=== PATIENT | female | born 1990 | race Caucasian/White ===

== ENCOUNTER 2017-02-05 19:13 | Emergency (ER) | payer SELFPAY ==
[2017-02-05] MEDS ORDERED: ACETAMINOPHEN W/COD #3 TAB 1 EA TAB PO ONE (19:32)
[2017-02-05] MEDS ORDERED: AMOXICILLIN & POT CLAVULANATE 875 MG TAB PO ONE (19:32)
[2017-02-05 19:34] VITALS: BP 121/82; TEMP 98; O2SAT 96
--- NOTE | 2017-02-05 19:35 | ED.PDOC ---
History of Present Illness - General Chief Complaint: Skin/Abrasion/Tear Stated Complaint: right cheek boil Time Seen by Provider: 02/05/17 19:16 Source: patient, RN notes reviewed, Vital Signs reviewed Exam Limitations: no limitations - History of Present Illness Initial Comments: Patient with tender/painful swollen area on right cheek. Reports it has been there for months. She tried lancing it herself. Pain now is extending into her ear and jaw. Mostly just wants the pain to go away. Timing/Duration: getting worse - over past several months. Location: face - Right posterior cheek, just proximal to ear Improving Factors: nothing Worsening Factors: movement, other - touching Associated Symptoms: swelling/mass/lumps Allergies/Adverse Reactions: Allergies NO KNOWN ALLERGY Allergy (Verified 08/09/16 22:38) Home Medications: Ambulatory Orders Albuterol Inhaler [Ventolin Hfa Inhaler] 2 puff INH Q3H PRN #1 inh 10/05/16 Acetaminophen W/ Codeine [Tylenol W/ CODEINE #3] 1 ea PO Q4HR PRN #15 02/05/17 Amoxicillin & Pot Clavulanate [Augmentin] 1 tab PO BID #20 tab 02/05/17 Review of Systems - Review of Systems Constitutional: States: no symptoms reported. Denies: chills, fever, malaise EENTM: States: other - Right jaw pain Respiratory: States: no symptoms reported Cardiology: States: no symptoms reported Gastrointestinal/Abdominal: States: no symptoms reported Musculoskeletal: States: no symptoms reported Skin: States: lesions - swollen, tender lump on R cheek with surrounding tenderness. Endocrine: States: no symptoms reported Hematologic/Lymphatic: States: no symptoms reported Past Medical History (General) - Patient Medical History Hx Seizures: No Hx Stroke: No Hx Dementia: No Hx Asthma: Yes Hx of COPD: No Hx Cardiac Disorders: No Hx Congestive Heart Failure: No Hx Pacemaker: No Hx Hypertension: No Hx Thyroid Disease: No Hx Diabetes: No Hx Gastroesophageal Reflux: Yes Hx Renal Disease: No Hx Cancer: No Hx of HIV: No Hx Hepatitis C: No Hx MRSA: No - Vaccination History Hx Tetanus, Diphtheria Vaccination: Yes Hx Influenza Vaccination: No Hx Pneumococcal Vaccination: No - Social History Hx Tobacco Use: Yes Hx Chewing Tobacco Use: No Hx Alcohol Use: No Hx Substance Use: Yes Hx Substance Use Treatment: Yes Hx Depression: No Hx Physical Abuse: No Hx Emotional Abuse: No Hx Suspected Abuse: No - Female History Patient : No Family Medical History - Family History Mother Family History: Unknown Living Status: Unknown Physical Exam - Physical Exam General Appearance: Alert, Comfortable, No apparent distress, Well Developed, Well Groomed, Well Hydrated, Well Nourished Eyes, Ears, Nose, Throat Exam: PERRL/EOMI, normal ENT inspection, TMs normal, pharynx normal Neck: non-tender, full range of motion, supple, lymphadenopathy (R) Respiratory: no respiratory distress, no accessory muscle use Extremity: normal range of motion, non-tender, normal inspection Neurologic: no motor/sensory deficits, alert, normal mood/affect, oriented x 3 Skin Exam: other - Right cheek, just ant to ear - tender lump with mild fluctuance, erythema and warmth. No surrounding erythema or warmth, no induration. +surrounding tenderness Skin Problem Location: face Skin Character: abscess, erythema, warm Departure - Departure Clinical Impression: Abscess of cheek Time of Disposition: 19:39 Disposition: Discharge to Home or Self Care Condition: Good Departure Forms: ED Discharge - Pt. Copy, Patient Portal Self Enrollment Instructions: DI for Skin Abscess Diet: resume usual diet Activity: increase activity as tolerated Prescriptions: Acetaminophen W/ Codeine [Tylenol W/ CODEINE #3] 1 ea PO Q4HR PRN #15 PRN Reason: Moderate To Severe Pain Amoxicillin & Pot Clavulanate [Augmentin] 1 tab PO BID #20 tab Home Medications: Ambulatory Orders Albuterol Inhaler [Ventolin Hfa Inhaler] 2 puff INH Q3H PRN #1 inh 10/05/16 Acetaminophen W/ Codeine [Tylenol W/ CODEINE #3] 1 ea PO Q4HR PRN #15 02/05/17 Amoxicillin & Pot Clavulanate [Augmentin] 1 tab PO BID #20 tab 02/05/17 Additional Instructions: Hot compresses 3-5X/day
== END 2017-02-05 19:52 | disposition home or self-care (01) ==
LOC: ER 19:13
DX: L02.01 Cutaneous abscess of face (principal); J45.909 Unspecified asthma, uncomplicated; K21.9 Gastro-esophageal reflux disease without esophagitis; Z87.891 Personal history of nicotine dependence

== ENCOUNTER 2017-04-22 17:12 | Emergency (ER) | payer SELFPAY ==
[2017-04-22 17:28] VITALS: BP 127/85; TEMP 97.6; O2SAT 96
--- NOTE | 2017-04-22 17:44 | ED.PDOC ---
History of Present Illness - General Chief Complaint: Dental/Mouth Stated Complaint: tooth ache Time Seen by Provider: 04/22/17 17:42 Source: patient Exam Limitations: no limitations - History of Present Illness Initial Comments: the patient is a 26-year-old female presenting to the emergency room due to dental pain on her second molar right maxilla. Pain has been present for a couple of weeks. She has tried oral [id number] medicati both ingested and topical. She cannot afford the dentist. She is feeling sinus pressure in the right maxillary sinus. She believes she has been running fevers She now has something of a sore throat. Timing/Duration: 1 week Severity: moderate Improving Factors: nothing Worsening Factors: nothing Associated Symptoms: denies symptoms Allergies/Adverse Reactions: Allergies NO KNOWN ALLERGY Allergy (Verified 08/09/16 22:38) Home Medications: Ambulatory Orders Cephalexin Monohydrate [Keflex] 500 mg PO Q8H #30 cap 04/22/17 Gabapentin 300 mg PO TID PRN #20 cap 04/22/17 Review of Systems - Review of Systems Constitutional: States: malaise EENTM: States: mouth pain Respiratory: States: no symptoms reported Cardiology: States: no symptoms reported Gastrointestinal/Abdominal: States: no symptoms reported Genitourinary: States: no symptoms reported Musculoskeletal: States: no symptoms reported Skin: States: no symptoms reported Neurological: States: no symptoms reported Endocrine: States: no symptoms reported All other Systems: No Change from Baseline Past Medical History (General) - Patient Medical History Hx Seizures: No Hx Stroke: No Hx Dementia: No Hx Asthma: Yes Hx of COPD: No Hx Cardiac Disorders: No Hx Congestive Heart Failure: No Hx Pacemaker: No Hx Hypertension: No Hx Thyroid Disease: No Hx Diabetes: No Hx Gastroesophageal Reflux: Yes Hx Renal Disease: No Hx Cancer: No Hx of HIV: No Hx Hepatitis C: No Hx MRSA: No Surgical History: cholecystectomy - Vaccination History Hx Tetanus, Diphtheria Vaccination: Yes Hx Influenza Vaccination: No Hx Pneumococcal Vaccination: No - Social History Hx Tobacco Use: Yes Hx Chewing Tobacco Use: No Hx Alcohol Use: No Hx Substance Use: Yes Hx Substance Use Treatment: Yes Hx Depression: No Hx Physical Abuse: No Hx Emotional Abuse: No Hx Suspected Abuse: No - Female History Patient : No Family Medical History - Family History Mother Family History: Unknown Living Status: Unknown Physical Exam - Physical Exam General Appearance: Alert, Comfortable, No apparent distress Eye Exam: bilateral normal Ears, Nose, Throat: other - poor dentition no obvious abscess Neck: non-tender, full range of motion, supple Respiratory: no respiratory distress, no accessory muscle use Cardiovascular/Chest: normal peripheral pulses, no edema Peripheral Pulses: radial,right: 2+, radial,left: 2+ Rectal Exam: deferred Extremity: normal range of motion, normal inspection, no pedal edema, normal capillary refill 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 The patient will be placed on Keflex for 10 days. She will also be written for gabapentin for as needed use. She can continue Motrin. she needs to follow up with a dentist. ER warnings were given. Departure - Departure Clinical Impression: Pain due to dental caries Disposition: Discharge to Home or Self Care Condition: Fair Departure Forms: ED Discharge - Pt. Copy, Patient Portal Self Enrollment Instructions: DI for Dental Pain Diet: regular diet Activity: increase activity as tolerated Prescriptions: Cephalexin Monohydrate [Keflex] 500 mg PO Q8H #30 cap Gabapentin 300 mg PO TID PRN #20 cap PRN Reason: Toothache Pain Home Medications: Ambulatory Orders Cephalexin Monohydrate [Keflex] 500 mg PO Q8H #30 cap 04/22/17 Gabapentin 300 mg PO TID PRN #20 cap 04/22/17 Additional Instructions: the patient is a 26-year-old female presenting with pain from dental caries and resultant maxillary sinusitis on the right. The patient will be placed on Keflex for 10 days. She will also be written for gabapentin for as needed use. She can continue Motrin. she needs to follow up with a dentist. ER warnings were given.
== END 2017-04-22 17:59 | disposition home or self-care (01) ==
LOC: ER 17:12
DX: K02.9 Dental caries, unspecified (principal); K21.9 Gastro-esophageal reflux disease without esophagitis; J45.909 Unspecified asthma, uncomplicated; Z87.891 Personal history of nicotine dependence

== ENCOUNTER 2017-05-17 15:11 | Emergency (ER) | payer SELFPAY ==
--- NOTE | 2017-05-17 15:30 | ED.PDOC ---
History of Present Illness - General Time Seen by Provider: 05/17/17 15:28 Source: patient Exam Limitations: no limitations - History of Present Illness Initial Comments: The patient is a 26-year-old female presenting to the emergency room secondary to 24 hours of intermittent nausea and vomiting. She does report some coffee- ground emesis. She is also been having some mild diarrhea but no melena. No fevers. She has been having some abdominal cramping. The patient has been taking Advil and Aleve very heavily due todental pain. Timing/Duration: 24 hours Severity: moderate Improving Factors: nothing Worsening Factors: nothing Associated Symptoms: denies symptoms Allergies/Adverse Reactions: Allergies NO KNOWN ALLERGY Allergy (Verified 08/09/16 22:38) Home Medications: Ambulatory Orders Cephalexin Monohydrate [Keflex] 500 mg PO Q8H #30 cap 04/22/17 Gabapentin 300 mg PO TID PRN #20 cap 04/22/17 Promethazine HCl 25 mg PO Q6H PRN #10 tab 05/17/17 Sucralfate Tab [Carafate Tab] 1 gm PO QID #120 tab 05/17/17 Review of Systems - Review of Systems Constitutional: States: no symptoms reported EENTM: States: mouth pain - dental pain Respiratory: States: no symptoms reported Cardiology: States: no symptoms reported Gastrointestinal/Abdominal: States: see HPI Genitourinary: States: no symptoms reported Musculoskeletal: States: no symptoms reported Skin: States: no symptoms reported Neurological: States: no symptoms reported Endocrine: States: no symptoms reported All other Systems: No Change from Baseline Past Medical History (General) - Patient Medical History Hx Seizures: No Hx Stroke: No Hx Dementia: No Hx Asthma: Yes Hx of COPD: No Hx Cardiac Disorders: No Hx Congestive Heart Failure: No Hx Pacemaker: No Hx Hypertension: No Hx Thyroid Disease: No Hx Diabetes: No Hx Gastroesophageal Reflux: Yes Hx Renal Disease: No Hx Cancer: No Hx of HIV: No Hx Hepatitis C: No Hx MRSA: No - Vaccination History Hx Tetanus, Diphtheria Vaccination: Yes Hx Influenza Vaccination: No Hx Pneumococcal Vaccination: No - Social History Hx Tobacco Use: Yes Hx Chewing Tobacco Use: No Hx Alcohol Use: No Hx Substance Use: Yes Hx Substance Use Treatment: Yes Hx Depression: No Hx Physical Abuse: No Hx Emotional Abuse: No Hx Suspected Abuse: No - Female History Patient : No Family Medical History - Family History Mother Family History: Unknown Living Status: Unknown Physical Exam - Physical Exam General Appearance: Alert, Comfortable, No apparent distress Eye Exam: bilateral normal Ears, Nose, Throat: hearing grossly normal, normal pharynx - except poor dentition and pain from a broken posterior right upper molar Neck: non-tender, full range of motion, supple Respiratory: chest non-tender, lungs clear, normal breath sounds, no respiratory distress, no accessory muscle use Cardiovascular/Chest: normal peripheral pulses, regular rate, rhythm, no edema Peripheral Pulses: radial,right: 2+, radial,left: 2+ Gastrointestinal/Abdominal: non tender, soft Rectal Exam: deferred Back Exam: normal inspection, no CVA tenderness, no vertebral tenderness Extremity: normal range of motion, non-tender, normal inspection, no pedal edema , normal capillary refill 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 the patient likely has a significant gastritis related to her anti-inflammatory use for control of her dental pain. She is going to have to stop using the Advil and Aleve. She needs to go back to using Tylenol but no more than 3000 mg per day. She does need to see a dentist to get the tooth fixed. She can try applying clove oil topically to the tooth once to see if this helps. She can continue using Ambisol on the tooth. She also needs to excelsior picker some Maalox and take a tablespoon every couple of hours for the next 2 days for her gastritis. She is going to be written for Carafate 4 times daily for the next month. She is also going to be written for some oral Phenergan to help control any nausea. ER warnings were given for any worsening. The patient agrees to comply. Departure - Departure Clinical Impression: NSAID induced gastritis Disposition: Discharge to Home or Self Care Condition: Fair Instructions: DI for Gastritis Diet: bland diet Activity: increase activity as tolerated Prescriptions: Promethazine HCl 25 mg PO Q6H PRN #10 tab PRN Reason: Vomiting Sucralfate Tab [Carafate Tab] 1 gm PO QID #120 tab Home Medications: Ambulatory Orders Cephalexin Monohydrate [Keflex] 500 mg PO Q8H #30 cap 04/22/17 Gabapentin 300 mg PO TID PRN #20 cap 04/22/17 Promethazine HCl 25 mg PO Q6H PRN #10 tab 05/17/17 Sucralfate Tab [Carafate Tab] 1 gm PO QID #120 tab 05/17/17 Additional Instructions: the patient is a 26-year-old female presenting to the emergency room secondary to nausea and vomiting. the patient likely has a significant gastritis related to her anti-inflammatory use for control of her dental pain. She is going to have to stop using the Advil and Aleve. She needs to go back to using Tylenol but no more than 3000 mg per day. She does need to see a dentist to get the tooth fixed. She can try applying clove oil topically to the tooth once to see if this helps. She can continue using Ambisol on the tooth. She also needs to excelsior picker some Maalox and take a tablespoon every couple of hours for the next 2 days for her gastritis. She is going to be written for Carafate 4 times daily for the next month. She is also going to be written for some oral Phenergan to help control any nausea. ER warnings were given for any worsening. The patient agrees to comply.
[2017-05-17] MEDS ORDERED: ONDANSETRON ODT 8 MG TAB SL ONE (15:44)
[2017-05-17] MEDS ORDERED: ALUMINUM & MAGNESIUM HYDROXIDE 30 ML UD PO ONE (15:44)
[2017-05-17] MEDS ORDERED: ACETAMINOPHEN 325 MG TAB PO ONE (16:15)
[2017-05-17 19:16] VITALS: TEMP 98.4; O2SAT 96
[2017-05-17 19:19] VITALS: BP 154/97
== END 2017-05-17 16:35 | disposition home or self-care (01) ==
LOC: ER 15:11
DX: K29.70 Gastritis, unspecified, without bleeding (principal); T39.395A Adverse effect of other nonsteroidal anti-inflammatory drugs [NSAID], initial encounter; K21.9 Gastro-esophageal reflux disease without esophagitis; J45.909 Unspecified asthma, uncomplicated; Z87.891 Personal history of nicotine dependence; K08.89 Other specified disorders of teeth and supporting structures

== ENCOUNTER 2018-02-16 22:30 | Emergency (ER) | payer SELFPAY ==
[2018-02-16] MEDS ORDERED: ACETAMINOPHEN-CAFF-BUTALBITAL 1 EA TAB PO ONE (22:55)
[2018-02-16] MEDS ORDERED: GABAPENTIN 300 MG CAP PO ONE (22:56)
--- NOTE | 2018-02-16 22:59 | ED.PDOC ---
History of Present Illness - General Chief Complaint: Dental/Mouth Stated Complaint: Toothache Time Seen by Provider: 02/16/18 22:50 Source: patient Exam Limitations: no limitations - History of Present Illness Initial Comments: The patient is a 27-year-old female presenting to the emergency room secondary to dental pain. The patient fractured her top left most posterior molar 3 or 4 days ago and has been having uncontrolled pain since. She has been taking Motrin and Tylenol and eventook one dose of hydrocodone which did not really help. It does not appear to be infected simply fractured. She has been using [id number] topical numbing agents with some relief. Severity: severe Improving Factors: nothing Worsening Factors: nothing Associated Symptoms: denies symptoms Allergies/Adverse Reactions: Allergies NO KNOWN ALLERGY Allergy (Verified 08/09/16 22:38) Home Medications: Ambulatory Orders Cephalexin Monohydrate [Keflex] 500 mg PO Q8H #30 cap 04/22/17 Gabapentin 300 mg PO TID PRN #20 cap 04/22/17 Promethazine HCl 25 mg PO Q6H PRN #10 tab 05/17/17 Sucralfate Tab [Carafate Tab] 1 gm PO QID #120 tab 05/17/17 Wlonrgzvfhoey-Nbmy-Dutykkjqyw [Fioricet] 1 ea PO Q8H PRN #21 tab 02/16/18 Cephalexin Monohydrate [Keflex] 500 mg PO Q8H #30 cap 02/16/18 Gabapentin 300 mg PO Q8HR PRN #20 cap 02/16/18 Review of Systems - Review of Systems Constitutional: States: no symptoms reported EENTM: States: mouth pain Respiratory: States: no symptoms reported Cardiology: States: no symptoms reported Gastrointestinal/Abdominal: States: no symptoms reported Genitourinary: States: no symptoms reported Musculoskeletal: States: no symptoms reported Skin: States: no symptoms reported Neurological: States: no symptoms reported Endocrine: States: no symptoms reported All other Systems: No Change from Baseline Past Medical History (General) - Patient Medical History Hx Seizures: No Hx Stroke: No Hx Dementia: No Hx Asthma: Yes Hx of COPD: No Hx Cardiac Disorders: No Hx Congestive Heart Failure: No Hx Pacemaker: No Hx Hypertension: No Hx Thyroid Disease: No Hx Diabetes: No Hx Gastroesophageal Reflux: Yes Hx Renal Disease: No Hx Cancer: No Hx of HIV: No Hx Hepatitis C: No Hx MRSA: No Surgical History: cholecystectomy - Vaccination History Hx Tetanus, Diphtheria Vaccination: Yes Hx Influenza Vaccination: Yes Hx Pneumococcal Vaccination: No Immunizations Up to Date: Yes - Social History Hx Tobacco Use: Yes Cigarettes Packs Per Day: 1 Hx Chewing Tobacco Use: No Hx Alcohol Use: No Hx Substance Use: No Hx Substance Use Treatment: No Hx Depression: Yes Feels Threatened In Home Enviroment: No Feels Threatened In a Relationship: No Hx Physical Abuse: No Hx Emotional Abuse: No Hx Suspected Abuse: No - Activities of Daily Living Hospice Agency (if applicable):: None - Female History Patient is a Female of Child Bearing Age (10 -59 yrs old): Yes Patient : No Family Medical History - Family History Mother Family History: Unknown Living Status: Unknown Physical Exam - Physical Exam General Appearance: Alert, Comfortable, No apparent distress Eye Exam: bilateral normal Ears, Nose, Throat: hearing grossly normal, other - see history of present illness Neck: full range of motion, supple Respiratory: no respiratory distress, no accessory muscle use Cardiovascular/Chest: normal peripheral pulses, no edema Peripheral Pulses: radial,right: 2+, radial,left: 2+ Rectal Exam: deferred Extremity: normal range of motion, no pedal edema, normal capillary refill 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 There does not appear to be infection at this time. The patient is going to be written for some Fioricet and Neurontin to take for the next few days until she can get set up with a dentist. She'll be written for Keflex to start taking 2 days before a dental appointment. She can continue Orajel for topical pain relief. If she can get a hold of some clove oil she can use some topical clove oil once on the fractured tooth to try and help with pain. She can continue to take Motrin 3 times daily with food as needed. Soft mechanical diet is recommended. ER warnings were given for any significant worsening. Departure - Departure Clinical Impression: Dental injury Qualifiers: Encounter type: initial encounter Qualified Code(s): S09.93XA - Unspecified injury of face, initial encounter Disposition: Discharge to Home or Self Care Condition: Fair Departure Forms: ED Discharge - Pt. Copy, Patient Portal Self Enrollment Instructions: DI for Dental Pain Diet: regular diet Activity: increase activity as tolerated Prescriptions: Gabapentin 300 mg PO Q8HR PRN #20 cap PRN Reason: Toothache Pain Yqkgeadwfggaf-Sfju-Skyaehklfg [Fioricet] 1 ea PO Q8H PRN #21 tab PRN Reason: Pain Cephalexin Monohydrate [Keflex] 500 mg PO Q8H #30 cap Home Medications: Ambulatory Orders Cephalexin Monohydrate [Keflex] 500 mg PO Q8H #30 cap 04/22/17 Gabapentin 300 mg PO TID PRN #20 cap 04/22/17 Promethazine HCl 25 mg PO Q6H PRN #10 tab 05/17/17 Sucralfate Tab [Carafate Tab] 1 gm PO QID #120 tab 05/17/17 Cnmxdzqogbtqh-Hjig-Pmepellxil [Fioricet] 1 ea PO Q8H PRN #21 tab 02/16/18 Cephalexin Monohydrate [Keflex] 500 mg PO Q8H #30 cap 02/16/18 Gabapentin 300 mg PO Q8HR PRN #20 cap 02/16/18 Additional Instructions: the patient's 27-year-old female presenting to the emergency room secondary to dental pain from a fractured molar. There does not appear to be infection at this time. The patient is going to be written for some Fioricet and Neurontin to take for the next few days until she can get set up with a dentist. She'll be written for Keflex to start taking 2 days before a dental appointment. She can continue Orajel for topical pain relief. If she can get a hold of some clove oil she can use some topical clove oil once on the fractured tooth to try and help with pain. She can continue to take Motrin 3 times daily with food as needed. Soft mechanical diet is recommended. ER warnings were given for any significant worsening.
[2018-02-16 23:21] VITALS: BP 148/85; TEMP 98.1; O2SAT 98
== END 2018-02-16 23:21 | disposition home or self-care (01) ==
LOC: ER 22:30
DX: S02.5XXA Fracture of tooth (traumatic), initial encounter for closed fracture (principal); J45.909 Unspecified asthma, uncomplicated; K21.9 Gastro-esophageal reflux disease without esophagitis; F17.210 Nicotine dependence, cigarettes, uncomplicated; X58.XXXA Exposure to other specified factors, initial encounter; Y92.9 Unspecified place or not applicable

== ENCOUNTER 2018-02-19 22:56 | Emergency (ER) | payer SELFPAY ==
[2018-02-19] MEDS ORDERED: IPRATROPIUM/ALBUTEROL 3 ML VIAL NEB ONE (23:32)
[2018-02-19] MEDS ORDERED: methylPREDNISolone SODIUM SUC 125 MG/2 ML VIAL IV ONE (23:32)
[2018-02-19] MEDS ORDERED: SODIUM CHLORIDE 0.9% 1000ML 1,000 ML IVS ONE (23:32)
--- NOTE | 2018-02-19 23:36 | ED.PDOC ---
History of Present Illness - General Chief Complaint: Respiratory Problem Stated Complaint: short of breath, coughing, fever Time Seen by Provider: 02/19/18 23:30 Source: patient Exam Limitations: no limitations Additional Information: C/O COUGH WHEEZING AND SOB X 1.5 WEEKS. WORSENING. HAS NOT RESPONDED TO NEBULIZER TX. - History of Present Illness Severity: moderate Improving Factors: other - NEUBLIZER GIVES VERY SHORT TERM RELIEF. Worsening Factors: movement - FUENTES Associated Symptoms: fever/chills Allergies/Adverse Reactions: Allergies NO KNOWN ALLERGY Allergy (Verified 02/19/18 23:33) Home Medications: Ambulatory Orders Cephalexin Monohydrate [Keflex] 500 mg PO Q8H #30 cap 04/22/17 Gabapentin 300 mg PO TID PRN #20 cap 04/22/17 Promethazine HCl 25 mg PO Q6H PRN #10 tab 05/17/17 Sucralfate Tab [Carafate Tab] 1 gm PO QID #120 tab 05/17/17 Naegcdbopknan-Nihm-Hhoufbqpdj [Fioricet] 1 ea PO Q8H PRN #21 tab 02/16/18 Cephalexin Monohydrate [Keflex] 500 mg PO Q8H #30 cap 02/16/18 Gabapentin 300 mg PO Q8HR PRN #20 cap 02/16/18 Albuterol Sulfate Nebs [Proventil Nebs] 2.5 mg INH QID PRN #120 vial 02/20/18 Amoxicillin & Pot Clavulanate [Augmentin] 1 tab PO BID #20 tab 02/20/18 Prednisone [Deltasone] 20 mg PO BID #5 tab 02/20/18 Review of Systems - Review of Systems Constitutional: States: fever. Denies: chills, diaphoresis EENTM: States: no symptoms reported Respiratory: States: cough, short of breath, wheezing, other - AUDIO VISUAL AIDE Cardiology: Denies: chest pain, palpitations, syncope Gastrointestinal/Abdominal: Denies: abdominal pain, diarrhea, nausea, vomiting Genitourinary: States: no symptoms reported Musculoskeletal: States: no symptoms reported Skin: States: no symptoms reported Neurological: States: no symptoms reported Endocrine: States: no symptoms reported Hematologic/Lymphatic: States: no symptoms reported Past Medical History (General) - Patient Medical History Hx Seizures: No Hx Stroke: No Hx Dementia: No Hx Asthma: Yes Hx of COPD: No Hx Cardiac Disorders: No Hx Congestive Heart Failure: No Hx Pacemaker: No Hx Hypertension: No Hx Thyroid Disease: No Hx Diabetes: No Hx Gastroesophageal Reflux: Yes Hx Renal Disease: No Hx Cancer: No Hx of HIV: No Hx Hepatitis C: No Hx MRSA: No Surgical History: cholecystectomy - Vaccination History Hx Tetanus, Diphtheria Vaccination: Yes Hx Influenza Vaccination: Yes Hx Pneumococcal Vaccination: No - Social History Hx Tobacco Use: Yes Hx Chewing Tobacco Use: No Hx Alcohol Use: No Hx Substance Use: No Hx Substance Use Treatment: No Hx Depression: Yes Hx Physical Abuse: No Hx Emotional Abuse: No Hx Suspected Abuse: No - Female History Hx Last Menstrual Period: 02/08/18 Patient : No Family Medical History - Family History Mother Family History: Unknown Living Status: Unknown Hx Family Asthma: No Hx Family Congestive Heart Failure: No Hx Family Hypertension: No Hx Family Stroke: No Hx Cardiac Disease: No Hx Family Diabetes: No Hx Family Cancer: No Physical Exam - Physical Exam General Appearance: Anxious, No apparent distress, Obese Eye Exam: bilateral normal Ears, Nose, Throat: hearing grossly normal, normal ENT inspection Neck: non-tender, full range of motion, supple Respiratory: no respiratory distress, other - INSP/EXP WHEEZING, NO RALES/ RHONCHI Cardiovascular/Chest: no murmur, tachycardia Gastrointestinal/Abdominal: non tender, soft, no organomegaly Back Exam: normal inspection, no CVA tenderness, no vertebral tenderness Extremity: normal range of motion, non-tender, normal inspection, no pedal edema , no calf tenderness Neurologic: alert, normal mood/affect Skin Exam: normal color, warm/dry Lymphatic: no adenopathy Progress - Progress Progress: 02/20/18 00:31 FEELS BETTER, NO WHEEZES, HAS A FEW LLL RALES. - EKG/XRAY/CT XRAY: chest - EARLY LLL INFILTRATE Departure - Departure Clinical Impression: Asthma exacerbation, Bronchospasm, acute Pneumonia Qualifiers: Pneumonia type: due to unspecified organism Laterality: left Lung location: lower lobe of lung Qualified Code(s): J18.1 - Lobar pneumonia, unspecified organism Time of Disposition: 00:33 Disposition: Discharge to Home or Self Care Condition: Good Departure Forms: ED Discharge - Pt. Copy, Patient Portal Self Enrollment Instructions: DI for Pneumonia -- Adult, DI for Asthma -- Adult Prescriptions: Albuterol Sulfate Nebs [Proventil Nebs] 2.5 mg INH QID PRN #120 vial PRN Reason: WHEEZING Amoxicillin & Pot Clavulanate [Augmentin] 1 tab PO BID #20 tab Prednisone [Deltasone] 20 mg PO BID #5 tab Home Medications: Ambulatory Orders Cephalexin Monohydrate [Keflex] 500 mg PO Q8H #30 cap 04/22/17 Gabapentin 300 mg PO TID PRN #20 cap 04/22/17 Promethazine HCl 25 mg PO Q6H PRN #10 tab 05/17/17 Sucralfate Tab [Carafate Tab] 1 gm PO QID #120 tab 05/17/17 Wavennyonpeeb-Vcae-Oxxabudtuv [Fioricet] 1 ea PO Q8H PRN #21 tab 02/16/18 Cephalexin Monohydrate [Keflex] 500 mg PO Q8H #30 cap 02/16/18 Gabapentin 300 mg PO Q8HR PRN #20 cap 02/16/18 Albuterol Sulfate Nebs [Proventil Nebs] 2.5 mg INH QID PRN #120 vial 02/20/18 Amoxicillin & Pot Clavulanate [Augmentin] 1 tab PO BID #20 tab 02/20/18 Prednisone [Deltasone] 20 mg PO BID #5 tab 02/20/18
--- NOTE | 2018-02-19 23:55 | RAD ---
EXAM: AP CHEST RADIOGRAPH CLINICAL INDICATION: Cough and wheezing. COMPARISON: Chest radiographs of October 05, 2016. FINDINGS: Cardiac size and pulmonary vasculature are normal. Lungs are clear. No pleural effusions or pneumothorax. No hilar or mediastinal lymphadenopathy. No mediastinal widening. No extraluminal bowel gas under the hemidiaphragms. Bones are intact on this single view. IMPRESSION: Normal portable AP chest radiograph. Electronically signed by: Estuardo Kirby MD 02/19/2018 11:54 PM CDT
[2018-02-19 23:57] VITALS: O2SAT 95
[2018-02-20 01:39] VITALS: BP 164/88; TEMP 98.6
== END 2018-02-20 01:44 | disposition home or self-care (01) ==
LOC: ER 22:56
DX: J18.1 Lobar pneumonia, unspecified organism (principal); J45.901 Unspecified asthma with (acute) exacerbation; Z87.891 Personal history of nicotine dependence

== ENCOUNTER → 2018-07-30 | Outpatient (CLI) | payer OTHER | LOC: YCFC.O 12:57 | PROVIDERS: ATTEND Family Medicine | DX: N61.1 Abscess of the breast and nipple (principal) ==

== ENCOUNTER → 2018-08-06 | Outpatient (CLI) | payer OTHER | LOC: LAB.O 09:42 | PROVIDERS: ATTEND Nurse Practitioner Psychiatric/Mental Health | DX: F31.12 Bipolar disorder, current episode manic without psychotic features, moderate (principal); F41.0 Panic disorder [episodic paroxysmal anxiety]; F43.10 Post-traumatic stress disorder, unspecified; R41.83 Borderline intellectual functioning; F15.20 Other stimulant dependence, uncomplicated; F11.20 Opioid dependence, uncomplicated; F12.20 Cannabis dependence, uncomplicated; F13.20 Sedative, hypnotic or anxiolytic dependence, uncomplicated; E66.9 Obesity, unspecified; Z91.19 Patient's noncompliance with other medical treatment and regimen ==

== ENCOUNTER → 2018-10-22 | Outpatient (CLI) | payer OTHER | LOC: LAB.O 09:10 | PROVIDERS: ATTEND Nurse Practitioner Psychiatric/Mental Health | DX: Z79.899 Other long term (current) drug therapy (principal) ==

== ENCOUNTER 2019-01-21 10:35 | Emergency (ER) | payer SELFPAY ==
[2019-01-21] MEDS ORDERED: methylPREDNISolone SODIUM SUC 125 MG/2 ML VIAL IV ONE (10:50)
--- NOTE | 2019-01-21 10:51 | ED.PDOC ---
History of Present Illness - General Chief Complaint: General Stated Complaint: Cough, runny nose Time Seen by Provider: 01/21/19 10:49 Source: patient, RN notes reviewed, Vital Signs reviewed Additional Information: 28 YEAR OLD KNOWN ASTHMATIC CHRONIC SMOKER PRESENTS WITH 3 DAY HISTORY OF SHORTNESS OF BREATH PRODUCTIVE COUGH DENIES FEVER CHILLS - History of Present Illness Timing/Duration: getting worse Severity: moderate Improving Factors: nothing Associated Symptoms: cough, shortness of breath Allergies/Adverse Reactions: Allergies NO KNOWN ALLERGY Allergy (Verified 01/21/19 10:44) Home Medications: Ambulatory Orders Albuterol Inhaler [Ventolin Hfa Inhaler] 1 puff INH Q6HR #1 inh 01/21/19 Azithromycin Tab [Zithromax] 250 mg PO QDPC #6 tab 01/21/19 Methylprednisolone [Medrol Dose Kiko] 4 mg PO DAILY 6 Days #21 tab 01/21/19 carBAMazepine [TEGretol] 200 mg PO BID 01/21/19 Review of Systems - Review of Systems Constitutional: States: no symptoms reported EENTM: States: no symptoms reported Respiratory: States: short of breath, wheezing Cardiology: States: no symptoms reported Gastrointestinal/Abdominal: States: no symptoms reported Genitourinary: States: no symptoms reported Musculoskeletal: States: no symptoms reported Skin: States: no symptoms reported Neurological: States: no symptoms reported Endocrine: States: no symptoms reported Hematologic/Lymphatic: States: no symptoms reported Past Medical History (General) - Patient Medical History Hx Seizures: No Hx Stroke: No Hx Dementia: No Hx Asthma: Yes Hx of COPD: No Hx Cardiac Disorders: No Hx Congestive Heart Failure: No Hx Pacemaker: No Hx Hypertension: No Hx Thyroid Disease: No Hx Diabetes: No Hx Gastroesophageal Reflux: Yes Hx Renal Disease: No Hx Cancer: No Hx of HIV: No Hx Hepatitis C: No Hx MRSA: No Surgical History: cholecystectomy - Vaccination History Hx Tetanus, Diphtheria Vaccination: Yes Hx Influenza Vaccination: Yes - 2018 Hx Pneumococcal Vaccination: No - Social History Hx Tobacco Use: Yes Hx Chewing Tobacco Use: No Hx Alcohol Use: Yes - Occasional Hx Substance Use: No Hx Substance Use Treatment: No Hx Depression: Yes Hx Physical Abuse: No Hx Emotional Abuse: No Hx Suspected Abuse: No - Female History Patient is a Female of Child Bearing Age (10 -59 yrs old): Yes Hx Last Menstrual Period: 02/08/18 Patient : No Family Medical History - Family History Mother Family History: Unknown Living Status: Unknown Hx Family Asthma: No Hx Family Congestive Heart Failure: No Hx Family Hypertension: No Hx Family Stroke: No Hx Cardiac Disease: No Hx Family Diabetes: No Hx Family Cancer: No Physical Exam - Physical Exam General Appearance: Alert, Comfortable Eye Exam: bilateral normal Ears, Nose, Throat: hearing grossly normal, normal ENT inspection, normal pharynx Neck: non-tender, full range of motion, supple Respiratory: respiratory distress, rhonchi, wheezing Cardiovascular/Chest: regular rate, rhythm, no edema, no gallop, no JVD Peripheral Pulses: radial,right: 2+ Gastrointestinal/Abdominal: normal bowel sounds, non tender, soft, no organomegaly Back Exam: normal inspection, no CVA tenderness, no vertebral tenderness Extremity: normal range of motion, non-tender, normal inspection Skin Exam: normal color, warm/dry Departure - Departure Clinical Impression: Asthmatic bronchitis Time of Disposition: 12:24 Disposition: Discharge to Home or Self Care Condition: Good Departure Forms: ED Discharge - Pt. Copy, ED Discharge - Work Release, Patient Portal Self Enrollment Diet: resume usual diet Prescriptions: Albuterol Inhaler [Ventolin Hfa Inhaler] 1 puff INH Q6HR #1 inh Azithromycin Tab [Zithromax] 250 mg PO QDPC #6 tab Methylprednisolone [Medrol Dose Kiko] 4 mg PO DAILY 6 Days #21 tab Home Medications: Ambulatory Orders Albuterol Inhaler [Ventolin Hfa Inhaler] 1 puff INH Q6HR #1 inh 01/21/19 Azithromycin Tab [Zithromax] 250 mg PO QDPC #6 tab 01/21/19 Methylprednisolone [Medrol Dose Kiko] 4 mg PO DAILY 6 Days #21 tab 01/21/19 carBAMazepine [TEGretol] 200 mg PO BID 01/21/19
--- NOTE | 2019-01-21 11:20 | RAD ---
EXAM DESCRIPTION: Chest,2 Views CLINICAL HISTORY: dry cough x 3 days COMPARISON: Previous study February 19, 2018 TECHNIQUE: PA/lateral FINDINGS: There is no acute appearing cardiac or pulmonary abnormality. Heart size is normal with normal pulmonary vascularity. No pleural effusion or pneumothorax. Lungs are clear with no consolidating infiltrate. Lateral view shows intact sternum and T-spine. IMPRESSION: No acute process is identified in the chest. Electronically signed by: Aaron Cordon MD 01/21/2019 11:17 AM [facility]
[2019-01-21] MEDS ORDERED: IPRATROPIUM/ALBUTEROL 3 ML VIAL NEB ONE ×2 (11:37→13:59)
[2019-01-21 12:25] VITALS: BP 134/88; TEMP 99; O2SAT 95
== END 2019-01-21 12:23 | disposition home or self-care (01) ==
LOC: ER 10:35
DX: J45.909 Unspecified asthma, uncomplicated (principal); F32.9 Major depressive disorder, single episode, unspecified; K21.9 Gastro-esophageal reflux disease without esophagitis; Z87.891 Personal history of nicotine dependence
CPT/HCPCS: 71046; 94640; J2930

== ENCOUNTER 2019-03-12 10:34 | Emergency (ER) | payer SELFPAY ==
[2019-03-12 10:44] VITALS: TEMP 98
--- NOTE | 2019-03-12 10:59 | ED.PDOC ---
History of Present Illness - General Chief Complaint: Dental/Mouth Stated Complaint: R jaw discomfort Time Seen by Provider: 03/12/19 10:53 Source: patient, RN notes reviewed, Vital Signs reviewed Exam Limitations: no limitations - History of Present Illness Initial Comments: c/o recurring post extraction dental pain. Says a tooth spicule was left behind. Timing/Duration: gradual Severity: moderate EENT Location: dental Prearrival Treatment: no prearrival treatment Improving Factors: nothing Worsening Factors: eating Associated Symptoms: facial pain/swelling Allergies/Adverse Reactions: Allergies NO KNOWN ALLERGY Allergy (Verified 01/21/19 10:44) Home Medications: Ambulatory Orders Albuterol Inhaler [Ventolin Hfa Inhaler] 1 puff INH Q6HR #1 inh 01/21/19 carBAMazepine [TEGretol] 200 mg PO BID 01/21/19 Acetaminophen W/ Codeine [Tylenol W/ CODEINE #3] 1 ea PO Q6H PRN 3 Days #12 03/12/19 Penicillin V Potassium 500 mg PO Q6H 7 Days #42 tab 03/12/19 Review of Systems - Review of Systems Constitutional: States: no symptoms reported EENTM: States: see HPI Respiratory: States: no symptoms reported Gastrointestinal/Abdominal: States: diarrhea Musculoskeletal: States: no symptoms reported Skin: States: no symptoms reported Neurological: States: headache Past Medical History (General) - Patient Medical History Hx Seizures: No Hx Stroke: No Hx Dementia: No Hx Asthma: Yes Hx of COPD: No Hx Cardiac Disorders: No Hx Congestive Heart Failure: No Hx Pacemaker: No Hx Hypertension: No Hx Thyroid Disease: No Hx Diabetes: No Hx Gastroesophageal Reflux: Yes Hx Renal Disease: No Hx Cancer: No Hx of HIV: No Hx Hepatitis C: No Hx MRSA: No Surgical History: cholecystectomy - Vaccination History Hx Tetanus, Diphtheria Vaccination: Yes Hx Influenza Vaccination: No Hx Pneumococcal Vaccination: No - Social History Hx Tobacco Use: Yes Hx Chewing Tobacco Use: No Hx Alcohol Use: Yes - infrequent Hx Substance Use: No Hx Substance Use Treatment: No Hx Depression: Yes Hx Physical Abuse: No Hx Emotional Abuse: No Hx Suspected Abuse: No - Female History Patient is a Female of Child Bearing Age (10 -59 yrs old): Yes Hx Last Menstrual Period: 02/08/18 Patient : No Family Medical History - Family History Mother Family History: No Known Living Status: Unknown Hx Family Asthma: No Hx Family Congestive Heart Failure: No Hx Family Hypertension: No Hx Family Stroke: No Hx Cardiac Disease: No Hx Family Diabetes: No Hx Family Cancer: No Physical Exam - Physical Exam General Appearance: Alert, Comfortable, No apparent distress Eye Exam: bilateral normal Nasal Exam: normal inspection Throat Exam: pharynx normal, dental tenderness, maxillary swelling Neck: full range of motion, supple, normal inspection Cardiovascular/Respiratory: no respiratory distress 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 Copy, Patient Portal Self Enrollment Instructions: DI for Mouth Pain, DI for Dental Pain Prescriptions: Acetaminophen W/ Codeine [Tylenol W/ CODEINE #3] 1 ea PO Q6H PRN 3 Days #12 PRN Reason: Moderate Pain Penicillin V Potassium 500 mg PO Q6H 7 Days #42 tab Home Medications: Ambulatory Orders Albuterol Inhaler [Ventolin Hfa Inhaler] 1 puff INH Q6HR #1 inh 01/21/19 carBAMazepine [TEGretol] 200 mg PO BID 01/21/19 Acetaminophen W/ Codeine [Tylenol W/ CODEINE #3] 1 ea PO Q6H PRN 3 Days #12 03/12/19 Penicillin V Potassium 500 mg PO Q6H 7 Days #42 tab 03/12/19 Additional Instructions: follow up with a dentist
[2019-03-12 11:21] VITALS: BP 144/99; O2SAT 95
== END 2019-03-12 11:21 | disposition home or self-care (01) ==
LOC: ER 10:34
DX: K08.89 Other specified disorders of teeth and supporting structures (principal); J45.909 Unspecified asthma, uncomplicated; K21.9 Gastro-esophageal reflux disease without esophagitis; F32.9 Major depressive disorder, single episode, unspecified; Z98.890 Other specified postprocedural states; Z87.891 Personal history of nicotine dependence

== ENCOUNTER 2020-02-05 12:04 | Emergency (ER) | payer SELFPAY ==
[2020-02-05] MEDS ORDERED: SODIUM CHLORIDE 0.9% 1000ML 1,000 ML IVS ONE (12:15)
[2020-02-05] MEDS ORDERED: ONDANSETRON ODT 8 MG TAB SL ONE (12:15)
--- NOTE | 2020-02-05 14:10 | RAD ---
: 1990. Sex: Female. TECHNIQUE: Supine and upright views of the abdomen with PA chest. CLINICAL HISTORY:nv. Findings: There is no intestinal dilatation. No evidence for bowel obstruction. Cholecystectomy clips are seen. There is no mass. There is no free air. There is no opaque calculus. Skeletal structures are unremarkable. The chest x-ray is clear. IMPRESSION: 1. No acute radiographic findings. Electronically signed by: Gus Thompson MD 02/05/2020 2:09 PM CDT
--- NOTE | 2020-02-05 14:19 | ED.PDOC ---
History of Present Illness - General Chief Complaint: GI Problem Stated Complaint: N/V/D, Abd pain Time Seen by Provider: 02/05/20 12:05 Source: patient Exam Limitations: no limitations - History of Present Illness Initial Comments: The patient is a 29-year-old female presented emergency room secondary to about 12 hours of nausea and vomiting. No blood and no bile. Epigastric discomfort only. No right upper quadrant or right lower quadrant pain. No fever. No urinary symptoms. No syncope. No chest pain. No rash. Timing/Duration: 24 hours Severity: moderate Improving Factors: nothing Worsening Factors: nothing Associated Symptoms: loss of appetite, malaise, nausea/vomiting Allergies/Adverse Reactions: Allergies NO KNOWN ALLERGY Allergy (Verified 02/05/20 13:00) Home Medications: Ambulatory Orders Albuterol Inhaler [Ventolin Hfa Inhaler] 1 puff INH Q6HR #1 inh 01/21/19 carBAMazepine [TEGretol] 200 mg PO BID 01/21/19 Famotidine [Pepcid Tab] 20 mg PO BID #60 tab 02/05/20 Ondansetron Odt [Zofran ODT] 4 mg PO Q8HR PRN #5 tab 02/05/20 Review of Systems - Review of Systems Constitutional: States: malaise EENTM: States: no symptoms reported Respiratory: States: no symptoms reported Cardiology: States: no symptoms reported Gastrointestinal/Abdominal: States: abdominal pain, nausea, vomiting Genitourinary: States: no symptoms reported Musculoskeletal: States: no symptoms reported Skin: States: no symptoms reported Neurological: States: no symptoms reported Endocrine: States: no symptoms reported All other Systems: No Change from Baseline Past Medical History (General) - Patient Medical History Hx Seizures: No Hx Stroke: No Hx Dementia: No Hx Asthma: Yes Hx of COPD: No Hx Cardiac Disorders: No Hx Congestive Heart Failure: No Hx Pacemaker: No Hx Hypertension: No Hx Thyroid Disease: No Hx Diabetes: No Hx Gastroesophageal Reflux: Yes Hx Renal Disease: No Hx Cancer: No Hx of HIV: No Hx Hepatitis C: No Hx MRSA: No Surgical History: cholecystectomy - Vaccination History Hx Tetanus, Diphtheria Vaccination: Yes Hx Influenza Vaccination: Yes Hx Pneumococcal Vaccination: No - Social History Hx Tobacco Use: Yes Hx Chewing Tobacco Use: No Hx Alcohol Use: Yes Hx Substance Use: Yes Hx Substance Use Treatment: Yes Hx Depression: No Hx Physical Abuse: No Hx Emotional Abuse: No Hx Suspected Abuse: No - Female History Patient is a Female of Child Bearing Age (10 -59 yrs old): Yes Hx Last Menstrual Period: 02/08/18 Patient : No - Unknown Family Medical History - Family History Mother Family History: No Known Living Status: Unknown Hx Family Asthma: No Hx Family Congestive Heart Failure: No Hx Family Hypertension: No Hx Family Stroke: No Hx Cardiac Disease: No Hx Family Diabetes: No Hx Family Cancer: No Physical Exam - Physical Exam General Appearance: Alert, No apparent distress Eye Exam: bilateral normal Ears, Nose, Throat: hearing grossly normal, normal ENT inspection, normal pharynx Neck: full range of motion, supple Respiratory: lungs clear, normal breath sounds, no respiratory distress, no accessory muscle use Cardiovascular/Chest: normal peripheral pulses, regular rate, rhythm, no edema Peripheral Pulses: radial,right: 2+, radial,left: 2+ Gastrointestinal/Abdominal: soft, other - Primarily epigastric discomfort to palpation. No true rebound or peritoneal signs. No obvious palpable mass. 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 It is likely of viral origin. The patient will be written for Zofran to control any nausea or vomiting. She also will be written for Pepcid to take twice daily for the next 5 to help reduce stomach acid. She also needs to turkey picker some [id number] Maalox or Mylanta to be used for the next few days to help reduce gastritis symptoms on an as-needed basis. She is maintain a bland diet. She is to keep her self well-hydrated. She needs to avoid alcohol intake as this will definitely worsen symptoms. ER warnings are given. Keep routine follow-up with primary care doctor otherwise. The patient has tested negative for influenza. Laboratory work and x-ray otherwise look reassuring. cosmo agrawal [id number] - Results/Orders Results/Orders: Acute abdominal series appears benign. Laboratory Tests 02/05/20 02/05/20 02/05/20 12:35 12:35 12:35 WBC 8.8 RBC 5.03 Hgb 15.2 Hct 44.5 MCV 88.5 MCH 30.3 MCHC 34.2 RDW 12.9 Plt Count 350 MPV 8.5 Absolute Neuts (auto) 4.60 Absolute Lymphs (auto) 3.60 H Absolute Monos (auto) 0.30 Absolute Eos (auto) 0.30 Absolute Basos (auto) 0.10 Neutrophils % 51.5 Lymphocytes % 40.5 Monocytes % 3.2 Eosinophils % 3.5 Basophils % 1.3 Sodium 135 Potassium 4.7 Chloride 103 Carbon Dioxide 25 Anion Gap 11.7 L BUN 13 Creatinine 0.81 BUN/Creatinine Ratio 16.0 Random Glucose 90 Serum Osmolality 269.7 L Calcium 9.0 Magnesium 1.9 Total Bilirubin 0.5 AST 20 ALT 16 Alkaline Phosphatase 58 Serum Total Protein 7.3 Albumin 4.0 Globulin 3.3 Albumin/Globulin Ratio 1.2 Amylase 79 Lipase 65 H Serum HCG, Qual Negative Urine Color Urine Appearance Urine pH Ur Specific [place] Urine Protein Urine Glucose (UA) Urine Ketones Urine Blood Urine Nitrite Urine Bilirubin Urine Urobilinogen Ur Leukocyte Esterase Urine RBC Urine WBC Ur Epithelial Cells Urine Bacteria 02/05/20 13:08 WBC RBC Hgb Hct MCV MCH MCHC RDW Plt Count MPV Absolute Neuts (auto) Absolute Lymphs (auto) Absolute Monos (auto) Absolute Eos (auto) Absolute Basos (auto) Neutrophils % Lymphocytes % Monocytes % Eosinophils % Basophils % Sodium Potassium Chloride Carbon Dioxide Anion Gap BUN Creatinine BUN/Creatinine Ratio Random Glucose Serum Osmolality Calcium Magnesium Total Bilirubin AST ALT Alkaline Phosphatase Serum Total Protein Albumin Globulin Albumin/Globulin Ratio Amylase Lipase Serum HCG, Qual Urine Color Yellow Urine Appearance Clear Urine pH 6.0 Ur Specific [place] 1.025 Urine Protein Negative Urine Glucose (UA) Negative Urine Ketones Negative Urine Blood Negative Urine Nitrite Negative Urine Bilirubin Negative Urine Urobilinogen 0.2 Ur Leukocyte Esterase Negative Urine RBC 0 Urine WBC 0 Ur Epithelial Cells 5-10 Urine Bacteria Rare Departure - Departure Clinical Impression: Gastritis Qualifiers: Gastritis type: unspecified gastritis Chronicity: acute Gastritis bleeding: without bleeding Qualified Code(s): K29.00 - Acute gastritis without bleeding Disposition: Discharge to Home or Self Care Condition: Fair Departure Forms: ED Discharge - Pt. Copy, Patient Portal Self Enrollment Instructions: DI for Gastritis Diet: bland diet Activity: increase activity as tolerated Prescriptions: Ondansetron Odt [Zofran ODT] 4 mg PO Q8HR PRN #5 tab PRN Reason: Nausea--Moderate Famotidine [Pepcid Tab] 20 mg PO BID #60 tab Home Medications: Ambulatory Orders Albuterol Inhaler [Ventolin Hfa Inhaler] 1 puff INH Q6HR #1 inh 01/21/19 carBAMazepine [TEGretol] 200 mg PO BID 01/21/19 Famotidine [Pepcid Tab] 20 mg PO BID #60 tab 02/05/20 Ondansetron Odt [Zofran ODT] 4 mg PO Q8HR PRN #5 tab 02/05/20 Additional Instructions: The patient is a 29-year-old female presented emergency room secondary to what a ppears to be an acute gastritis. It is likely of viral origin. The patient will be written for Zofran to control any nausea or vomiting. She also will be written for Pepcid to take twice daily for the next 5 to help reduce stomach acid. She also needs to turkey picker some [id number] Maalox or Mylanta to be used for the next few days to help reduce gastritis symptoms on an as-needed basis. She is maintain a bland diet. She is to keep her self well-hydrated. She needs to avoid alcohol intake as this will definitely worsen symptoms. ER warnings are given. Keep routine follow-up with primary care doctor otherwise. The patient has tested negative for influenza. Laboratory work and x-ray otherwise look reassuring.
[2020-02-05 14:38] VITALS: BP 122/68; TEMP 97.9; O2SAT 96
== END 2020-02-05 14:32 | disposition home or self-care (01) ==
LOC: ER 12:04
DX: K29.00 Acute gastritis without bleeding (principal); J45.909 Unspecified asthma, uncomplicated; K21.9 Gastro-esophageal reflux disease without esophagitis; Z87.891 Personal history of nicotine dependence
CPT/HCPCS: 36415; 74019; 80053; 81001; 82150; 83690; 83735; 84703; 85025; 87502; J7030

== ENCOUNTER 2020-04-08 11:35 | Emergency (ER) | payer SELFPAY ==
[2020-04-08] MEDS ORDERED: SODIUM CHLORIDE 0.9% (FLUSH) 10 ML SYG IV PRN (11:41)
[2020-04-08] MEDS ORDERED: ONDANSETRON INJ 4 MG/2 ML VIAL IV ONE (11:41)
[2020-04-08] MEDS ORDERED: SODIUM CHLORIDE 0.9% 1000ML 1,000 ML IVS ONE (11:41)
--- NOTE | 2020-04-08 11:42 | ED.PDOC ---
History of Present Illness - General Time Seen by Provider: 04/08/20 11:36 Source: patient - History of Present Illness Initial Comments: 29 yo female with PMH of asthma who presents with cc of abdominal pain. Onset 3 days ago with worsening, located to epigastric region with some radiation to RUQ, constant, 7/10 severity, worse while eating meals, especially spicy and fatty foods, tried some Tums without relief. Reports similar pains for the past several months, was also seen here 2 months ago and diagnosed with acute gastritis at that time. Patient admits to recently quitting use of meth and Xanax. She does continue to smoke approximately 3 packs/day of cigarettes. Reports nausea but no vomiting. Reports some dysuria without hematuria. States LMP was about 1.5 months ago, not on control. Denies any fevers, chills, chest pain, dyspnea, diarrhea, constipation, sore throat. She missed work yesterday due to the pain and today she was told by her boss that she needed to get a doctor's note so she came to the ER. Allergies/Adverse Reactions: Allergies NO KNOWN ALLERGY Allergy (Verified 02/05/20 13:00) Home Medications: Ambulatory Orders Albuterol Inhaler [Ventolin Hfa Inhaler] 1 puff INH Q6HR #1 inh 01/21/19 carBAMazepine [TEGretol] 200 mg PO BID 01/21/19 Famotidine [Pepcid Tab] 20 mg PO BID #60 tab 02/05/20 Ondansetron Odt [Zofran ODT] 4 mg PO Q8HR PRN #5 tab 02/05/20 Cephalexin Monohydrate [Keflex] 500 mg PO BID 5 Days #10 cap 04/08/20 Ondansetron Odt [Zofran ODT] 8 mg PO Q8H PRN 5 Days #10 tab 04/08/20 Review of Systems - Review of Systems Review of Systems: 04/08/20 11:53 as per HPI All other Systems: Reviewed and Negative Past Medical History (General) - Patient Medical History Hx Seizures: No Hx Stroke: No Hx Dementia: No Hx Asthma: Yes Hx of COPD: No Hx Cardiac Disorders: No Hx Congestive Heart Failure: No Hx Pacemaker: No Hx Hypertension: No Hx Thyroid Disease: No Hx Diabetes: No Hx Gastroesophageal Reflux: Yes Hx Renal Disease: No Hx Cancer: No Hx of HIV: No Hx Hepatitis C: No Hx MRSA: No - Vaccination History Hx Tetanus, Diphtheria Vaccination: Yes Hx Influenza Vaccination: Yes Hx Pneumococcal Vaccination: No - Social History Hx Tobacco Use: Yes Hx Chewing Tobacco Use: No Hx Alcohol Use: Yes Hx Substance Use: Yes Hx Substance Use Treatment: Yes Hx Depression: No Hx Physical Abuse: No Hx Emotional Abuse: No Hx Suspected Abuse: No - Female History Hx Last Menstrual Period: 02/08/18 Patient : No - Unknown Family Medical History - Family History Mother Family History: No Known Living Status: Unknown Hx Family Asthma: No Hx Family Congestive Heart Failure: No Hx Family Hypertension: No Hx Family Stroke: No Hx Cardiac Disease: No Hx Family Diabetes: No Hx Family Cancer: No Physical Exam - Physical Exam General Appearance: Alert, Comfortable, No apparent distress Eye Exam: bilateral normal Ears, Nose, Throat: normal ENT inspection, normal pharynx Neck: non-tender, full range of motion, supple, normal inspection Respiratory: lungs clear, normal breath sounds, no respiratory distress, no accessory muscle use Cardiovascular/Chest: normal peripheral pulses, regular rate, rhythm, no edema, no gallop, no JVD, no murmur Peripheral Pulses: radial,right: 2+, radial,left: 2+ Gastrointestinal/Abdominal: normal bowel sounds, soft, tenderness - moderate to epigastric and RUQ w/o guarding or rebound, mild to suprapubic and BL flanks Back Exam: normal inspection, no vertebral tenderness Extremity: normal range of motion, non-tender, normal inspection, no pedal edema, no calf tenderness, normal capillary refill 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 Consider also: Gastric ulcer, peptic ulcer, acute pancreatitis, UTI, , cholangitis, gastroenteritis, other. -Patient stable, NAD, vitals WNL -Obtain blood work, UA -Insert PIV, 1 L NS bolus, Protonix 40 mg IV, GI cocktail, Zofran 4 mg IV 04/08/20 12:45 -Patient reports feeling much better, remained stable, vitals WNL. -Labs reveal UA with TNTC WBCs, large bacteria - c/w UTI. Otherwise largely unremarkable. 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 Advised smoking cessation and trial of Protonix [id number] along with as needed medications. Also discussed dietary changes. -For UTI, will Rx Keflex 500 mg BID x5 days, first dose here. -DC to home in good condition, return warnings discussed at length. Follow-up closely with PCP. Jelani Sim MD Billing #[id number] 04/08/20 11:41 IV Care:Saline Lock per Protoc QSHIFT Sodium Chloride 0.9% (Flush) [Saline Flush Syringe] 10 ml IV PRN PRN 04/08/20 12:42 Urine Culture Stat Laboratory Results - last 24 hr 04/08/20 04/08/20 04/08/20 11:41 12:08 12:08 WBC 7.9 RBC 4.68 Hgb 14.0 Hct 41.3 MCV 88.2 MCH 30.0 MCHC 34.0 RDW 13.9 Plt Count 343 MPV 7.4 Absolute Neuts (auto) 4.30 Absolute Lymphs (auto) 2.80 Absolute Monos (auto) 0.40 Absolute Eos (auto) 0.40 Absolute Basos (auto) 0.00 Neutrophils % 54.7 Lymphocytes % 34.7 Monocytes % 5.2 Eosinophils % 5.0 Basophils % 0.4 Sodium 135 Potassium 3.5 L Chloride 101 Carbon Dioxide 27 Anion Gap 10.5 L BUN 13 Creatinine 0.73 BUN/Creatinine Ratio 17.8 Random Glucose 99 Serum Osmolality 270.2 L Calcium 8.8 Total Bilirubin 0.3 Direct Bilirubin 0.1 Indirect Bilirubin 0.2 AST 31 ALT 66 H Alkaline Phosphatase 69 Serum Total Protein 7.1 Albumin 3.4 Amylase 64 Lipase 41 Urine Color Urine Appearance Urine pH Ur Specific Bryant Urine Protein Urine Glucose (UA) Urine Ketones Urine Blood Urine Nitrite Urine Bilirubin Urine Urobilinogen Ur Leukocyte Esterase Urine RBC Urine WBC Ur Epithelial Cells Urine Bacteria Urine HCG, Qual Negative 04/08/20 12:42 WBC RBC Hgb Hct MCV MCH MCHC RDW Plt Count MPV Absolute Neuts (auto) Absolute Lymphs (auto) Absolute Monos (auto) Absolute Eos (auto) Absolute Basos (auto) Neutrophils % Lymphocytes % Monocytes % Eosinophils % Basophils % Sodium Potassium Chloride Carbon Dioxide Anion Gap BUN Creatinine BUN/Creatinine Ratio Random Glucose Serum Osmolality Calcium Total Bilirubin Direct Bilirubin Indirect Bilirubin AST ALT Alkaline Phosphatase Serum Total Protein Albumin Amylase Lipase Urine Color Yellow Urine Appearance Sl cloudy Urine pH 7.5 Ur Specific Bryant 1.025 Urine Protein Negative Urine Glucose (UA) Negative Urine Ketones Negative Urine Blood Negative Urine Nitrite Negative Urine Bilirubin Negative Urine Urobilinogen 1.0 Ur Leukocyte Esterase Small H Urine RBC 3-5 H Urine WBC Tntc H Ur Epithelial Cells 5-10 Urine Bacteria 4+ H Urine HCG, Qual Departure - Departure Clinical Impression: Gastritis Qualifiers: Gastritis type: unspecified gastritis Chronicity: acute Gastritis bleeding: without bleeding Qualified Code(s): K29.00 - Acute gastritis without bleeding UTI (urinary tract infection) Qualifiers: Urinary tract infection type: acute cystitis Hematuria presence: without hematuria Qualified Code(s): N30.00 - Acute cystitis without hematuria Time of Disposition: 12:37 Disposition: Discharge to Home or Self Care Condition: Good Departure Forms: ED Discharge - Work Release Instructions: DI for Gastritis Diet: resume usual diet Activity: increase activity as tolerated Prescriptions: Cephalexin Monohydrate [Keflex] 500 mg PO BID 5 Days #10 cap Ondansetron Odt [Zofran ODT] 8 mg PO Q8H PRN 5 Days #10 tab PRN Reason: Nausea Home Medications: Ambulatory Orders Albuterol Inhaler [Ventolin Hfa Inhaler] 1 puff INH Q6HR #1 inh 01/21/19 carBAMazepine [TEGretol] 200 mg PO BID 01/21/19 Famotidine [Pepcid Tab] 20 mg PO BID #60 tab 02/05/20 Ondansetron Odt [Zofran ODT] 4 mg PO Q8HR PRN #5 tab 02/05/20 Cephalexin Monohydrate [Keflex] 500 mg PO BID 5 Days #10 cap 04/08/20 Ondansetron Odt [Zofran ODT] 8 mg PO Q8H PRN 5 Days #10 tab 04/08/20 Additional Instructions: Remain well-hydrated and advance your diet and activity level as tolerated. Continue taking [id number] medication for gastritis/heartburn such as Protonix 40 mg once daily along with as needed medications such as Tums, Maalox, Mylanta. Avoid excessive use of NSAIDs such as ibuprofen, Aleve, etc. which may worsen gastritis and heartburn. Return to the ED if your symptoms worsen or if you develop concerning symptoms such as bloody vomiting, blood in the stools, dark stools, fevers, worsening abdominal pain. I also strongly advised that you quit smoking which can greatly worsen heartburn and gastritis and can also contribute to heart disease, cancers, etc. Follow-up closely with your primary care physician.
[2020-04-08] MEDS ORDERED: ALUM & MAG HYDROX-SIMETHICONE 30 ML, LIDOCAINE VISCOUS 2% 15 ML PO ONE ×2 (11:50)
[2020-04-08] MEDS ORDERED: PANTOPRAZOLE SODIUM IV 40 MG VIAL IV ONE (11:50)
[2020-04-08] MEDS ORDERED: CEPHALEXIN MONOHYDRATE 250 MG CAP PO ONE (12:53)
[2020-04-08] MEDS ORDERED: ONDANSETRON ODT (ER DISP) 8 MG TAB PO ONE (13:01)
[2020-04-08] MEDS ORDERED: PANTOPRAZOLE SODIUM TAB 40 MG PO ONE (13:01)
[2020-04-08] MEDS ORDERED: ONDANSETRON ODT 8 MG TAB SL ONE (13:24)
[2020-04-08 14:07] VITALS: BP 126/79; TEMP 97; O2SAT 94
== END 2020-04-08 13:40 | disposition home or self-care (01) ==
LOC: ER 11:35
DX: K29.00 Acute gastritis without bleeding (principal); N30.00 Acute cystitis without hematuria; J45.909 Unspecified asthma, uncomplicated; F17.210 Nicotine dependence, cigarettes, uncomplicated